=== PATIENT | female | born 1960 | race African-American/Black ===

== ENCOUNTER 2017-06-12 02:08 | Observation (INO) | payer OTHER ==
[~2017-06-12] VITALS: Ht 175.3 cm; Wt 105.0 kg
[2017-06-12] VITALS (13 sets, daily range): BP systolic 131–156; BP diastolic 62–96; PULSE 56–107; RESP 16–20; TEMP 97.8–99; O2SAT 94–99
[~2017-06-12 02:08] MED LIST: ASPI81TA82 PO; ENAL10TA7 PO; LANTUS2P SC; METF-324 PO
[2017-06-12] MEDS ORDERED: ASPI-516 CHEW (02:27)
[2017-06-12] MEDS ORDERED: ENAL20TA PO (02:27)
[2017-06-12] MEDS ORDERED: LANTUS2P SQ (02:27)
[2017-06-12] MEDS ORDERED: NOVONP2 SQ (02:27)
[2017-06-12] MEDS ORDERED: METF-382 PO (02:27)
--- NOTE | 2017-06-12 02:31 | PD ---
HPI Chief Complaint: Respiratory Symptoms Time Seen by Provider: 02:10 Travel History International Travel<30 days: No Contact w/Intl Traveler<30days: No Traveled to known affect area: No History of Present Illness HPI This is a 57-year-old female with history of asthma, "poorly controlled diabetes ," hypertension, who presents for evaluation of wheezing. For the past few days she has had wheezing and a slight nonproductive cough. Symptoms are worsened night. She is not currently prescribed anything for asthma because it has not been an issue for the past several years. She denies fevers, chills, chest brain, leg swelling, abdominal pain, nausea or vomiting. No sick contacts. She has no other complaints at this time. PFSH Past Medical History Asthma: Yes Cancer: No Cardiovascular Problems: No Diabetes: Yes (TYPE 2) Patient Takes Glucophage: Yes Endocrine: No Genitourinary: No Hepatitis: No Hiatal Hernia: No Immune Disorder: No Musculoskeletal: Yes (CARPAL TUNNEL) Neurologic: Yes (ARMS & LEG NEUROPATHY) Psychiatric: No Reproductive: No Respiratory: No Thyroid Disease: No ?: Not Past Surgical History AICD: No Joint Replacement: No Pacemaker: No Thoracic Surgery: Yes (LEFT BREAST BIOPSY) Other Surgery: Yes (CARPAL TUNNEL) Social History Alcohol Use: No Tobacco Use: No Substance Use: No Allergies-Medications (Allergen,Severity, Reaction): Coded Allergies: rosiglitazone (Unverified Allergy, Severe, SHAKITTY, 02/10/17) Reported Meds & Prescriptions Reported Meds & Active Scripts Active Reported Enalapril (Enalapril Maleate) 20 Mg Tab 20 Mg PO DAILY Novolin N Inj (Insulin Human NPH) 1,000 Unit/10 Ml Vial 10 Units SQ TID Lantus Inj (Insulin Glargine) 1,000 Unit/10 Ml Vial 80 Units SQ HS Metformin ER (Metformin HCl) 1,000 Mg John 1,000 Mg PO BID With evening meal Aspirin 81 Mg Chew 81 Mg CHEW DAILY Review of Systems Except as stated in HPI: all other systems reviewed are Neg Physical Exam Narrative GENERAL: Well developed well-nourished female in no acute distress SKIN: Warm and dry. HEAD: Atraumatic. Normocephalic. EYES: Pupils equal and round. No scleral icterus. No injection or drainage. ENT: No nasal bleeding or discharge. Mucous membranes pink and moist. NECK: Trachea midline. No JVD. CARDIOVASCULAR: Regular rate and rhythm. No murmur appreciated. RESPIRATORY: No accessory muscle use. There is wheezing bilaterally, prolonged expiratory phase as well as coarse breath sounds. GASTROINTESTINAL: Abdomen soft, non-tender, nondistended. Hepatic and splenic margins not palpable. MUSCULOSKELETAL: No obvious deformities. No clubbing. No cyanosis. There is trace tibial edema bilaterally. There is an Garo bandage in the left lower leg. NEUROLOGICAL: Awake and alert. No obvious cranial nerve deficits. Motor grossly within normal limits. Normal speech. PSYCHIATRIC: Appropriate mood and affect; insight and judgment normal. Data Data Last Documented VS Vital Signs Date Time Temp Pulse Resp B/P (MAP) Pulse Ox O2 Delivery O2 Flow Rate FiO2 06/12/17 02:41 98 21 06/12/17 02:19 56 20 143/87 (105) Room Air 06/12/17 02:09 99.0 Orders Orders Blood Glucose (06/12/17 02:29) Albuterol-Ipratropium Neb (Duoneb Neb) (06/12/17 02:30) Chest, Single Ap (06/12/17 ) Prednisone (Deltasone) (06/12/17 02:45) Complete Blood Count With Diff (06/12/17 03:10) Basic Metabolic Panel (Bmp) (06/12/17 03:10) B-Type Natriuretic Peptide (06/12/17 03:10) Magnesium (Mg) (06/12/17 03:10) Electrocardiogram (06/12/17 03:10) Furosemide Inj (Lasix Inj) (06/12/17 05:00) Creatine Kinase (Cpk) (06/12/17 03:20) Troponin I (06/12/17 03:20) Nitroglycerin 2% Oint (Nitroglycerin 2% (06/12/17 05:30) Admit Order (Ed Use Only) (06/12/17 05:26) Labs Laboratory Tests Test 06/12/17 03:20 White Blood Count 7.3 TH/MM3 Red Blood Count 4.55 MIL/MM3 Hemoglobin 12.4 GM/DL Hematocrit 38.5 % Mean Corpuscular Volume 84.8 FL Mean Corpuscular Hemoglobin 27.3 PG Mean Corpuscular Hemoglobin Concent 32.2 % Red Cell Distribution Width 16.8 % Platelet Count 182 TH/MM3 Mean Platelet Volume 10.8 FL Neutrophils (%) (Auto) 59.5 % Lymphocytes (%) (Auto) 26.5 % Monocytes (%) (Auto) 8.1 % Eosinophils (%) (Auto) 2.9 % Basophils (%) (Auto) 3.0 % Neutrophils # (Auto) 4.3 TH/MM3 Lymphocytes # (Auto) 1.9 TH/MM3 Monocytes # (Auto) 0.6 TH/MM3 Eosinophils # (Auto) 0.2 TH/MM3 Basophils # (Auto) 0.2 TH/MM3 CBC Comment DIFF FINAL Differential Comment Blood Urea Nitrogen 10 MG/DL Creatinine 0.98 MG/DL Random Glucose 188 MG/DL Calcium Level 8.8 MG/DL Magnesium Level 1.9 MG/DL Sodium Level 141 MEQ/L Potassium Level 3.8 MEQ/L Chloride Level 107 MEQ/L Carbon Dioxide Level 27.2 MEQ/L Anion Gap 7 MEQ/L Estimat Glomerular Filtration Rate 71 ML/MIN B-Type Natriuretic Peptide 240 PG/ML MDM Medical Decision Making Medical Screen Exam Complete: Yes Emergency Medical Condition: Yes Medical Record Reviewed: Yes Interpretation(s) EKG sinus tachycardia, rate 103, PVCs Differential Diagnosis Asthma exacerbation, reactive airway disease, bronchiolitis, bronchiectasis, pneumonia, spontaneous pneumothorax Narrative Course 57-year-old female presents with wheezing for the past several days with associated dry cough. On examination she has wheezing and coarse breath sounds bilaterally. She reports that typically she has minimal asthma symptoms and is not prescribed any medications for asthma control. Therefore chest x-ray has been ordered. The chest x-ray reveals pulmonary vascular congestion/mild pulmonary edema. The patient has no past medical history of congestive heart failure. Upon further discussion it appears that the patient has been experiencing orthopnea and dyspnea on exertion gradually over the past few weeks. Therefore lab work and EKG have been ordered. The patient was given IV Lasix and Nitropaste. She will be admitted. Discussed with my attending agrees with plan of care. Diagnosis Primary Impression: Pulmonary edema Additional Impression: Dyspnea Admitting Information Admitting Physician Requests: Rasheed Menendez Jun 12, 2017 02:31
[2017-06-12] MEDS: RESP: ALBUTEROL 2.5 MG/IPRATROPIUM 0.5 MG NEB (SCH) INH (02:38)
[2017-06-12] MEDS ORDERED: predniSONE 20 MG TAB PO ONE (02:45)
--- NOTE | 2017-06-12 02:58 | RADRPT ---
EXAM DATE/TIME: 06/12/2017 02:42 [facility] COMPARISON: No previous studies available for comparison. INDICATIONS : Shortness of breath and cough. MEDICAL HISTORY : None. SURGICAL HISTORY : None. ENCOUNTER: Initial ACUITY: 2 days PAIN SCORE: 0/10 LOCATION: chest FINDINGS: Single AP view of the chest. Diffuse pulmonary vasculature indistinctness and mild hazy opacity in th e lungs bilaterally suggesting pulmonary vascular congestion/mild pulmonary edema. Cardiomediastinal silhouette within normal limits. No evidence of pleural effusion or pneumothorax. No confluent pulmon raisa consolidation. CONCLUSION: Pulmonary vascular congestion/mild pulmonary edema. Maxwell Glez MD on June 12, 2017 at 2:54 Board Certified Radiologist. This report was verified electronically.
[2017-06-12 03:30] LABS: AUTOMATED NEUTROPHIL # 4.3 TH/MM3 (1.8-7.7); BASOPHIL # 0.2 TH/MM3 (0-0.2); EOSINOPHIL # 0.2 TH/MM3 (0-0.4); EOSINOPHIL % 2.9 % (0.0-4.0); HEMATOCRIT 38.5 % (35.0-46.0); HEMO FLAGS DIFF FINAL; LYMPH % 26.5 % (9.0-44.0); LYMPHOCYTE # 1.9 TH/MM3 (1.0-4.8); MEAN CELL VOLUME 84.8 FL (80.0-100.0); MEAN CORPUSCULAR HEMOGLOBIN 27.3 PG (27.0-34.0); MEAN CORPUSCULAR HGB CONC 32.2 % (32.0-36.0); MONO % 8.1 % (0.0-8.0); NEUT % 59.5 % (16.0-70.0); PLATELET COUNT 182 TH/MM3 (150-450); RED BLOOD COUNT 4.55 MIL/MM3 (4.00-5.30); RED CELL DISTRIBUTION WIDTH 16.8 % (11.6-17.2); WHITE BLOOD COUNT 7.3 TH/MM3 (4.0-11.0)
[2017-06-12 04:51] LABS: BICARBONATE 27.2 MEQ/L (21.0-32.0); MAGNESIUM 1.9 MG/DL (1.5-2.5); POTASSIUM 3.8 MEQ/L (3.5-5.1)
[2017-06-12] MEDS ORDERED: FUROSEMIDE 20 MG/2 ML VIAL IV PUSH ONE (05:00)
[2017-06-12] MEDS ORDERED: NITROGLYCERIN 2% OINT 1 GM PACKET TOP ONE (05:30)
[2017-06-12 05:50] LABS: CKMB 1.7 NG/ML (0.5-3.6)
[2017-06-12] MEDS ORDERED: RESP: ALBUTEROL 2.5 MG/IPRATROPIUM 0.5 MG NEB (PRN) NEB (08:30)
[2017-06-12] MEDS ORDERED: ACETAMINOPHEN 325 MG TAB PO PRN (08:30)
[2017-06-12] MEDS ORDERED: ONDANSETRON HCL 4 MG/2 ML VIAL IV PRN (08:30)
[2017-06-12] MEDS ORDERED: GLUCAGON 1 MG/ML VIAL OTHER PRN (08:45)
[2017-06-12] MEDS ORDERED: DEXTROSE 50% IN WATER 50 ML VIAL(D50) IV PUSH PRN (08:45)
[2017-06-12] MEDS ORDERED: ENALAPRIL MALEATE 10 MG TAB PO SCH ×2 (09:00→21:00)
[2017-06-12] MEDS ORDERED: ASPIRIN 81 MG CHEW TAB CHEW SCH ×2 (09:00→21:00)
--- NOTE | 2017-06-12 10:04 | HHI.HP ---
HPI Service [facility] Primary Care Physician Marcus Sepulveda M.D. Admission Diagnosis dyspnea, pulmonary edema Chief Complaint: SOB, wheezing Travel History International Travel<30 Days: No Contact w/Intl Traveler <30 Da: No Traveled to Known Affected Are: No History of Present Illness Mrs. Mahajan is a pleasant 57 y/o AAF with poorly controlled diabetes, chronic nonhealing wound on the LLE, hx of asthma, and HTN. She presented to the ED at [facility] on 06/12/17 with complaints of wheezing and SOB that had been going on for 2 days and progressively worsened last night. She has hx of asthma but states that since she moved to [place] 10 years ago from [place] that she has not had any issues with her asthma flaring up. She thinks that with the weather changing this caused her to start having issues with the wheezing two days ago. She states that the wheezing and SOB has been worse at night. Last night she was unable to catch her breath and felt like she had tightness in her chest and this prompted her evaluation in the ED. She denies any recent illnesses, cough, congestion, sore throat, or rhinorrhea. Denies any fevers or chills. CXR in the ED noted pulmonary vascular congestion/mild pulmonary edema. Pt was given a Duoneb treatment, Prednisone 20mg x one dose and Lasix 20mg IV x one dose. She was admitted for observation and further evaluation. At the time of my evaluation her wheezing is much improved. She states that she had a significant amount of urine output after the Lasix dose. Overall she is feeling better. Pt denies any hx of CHF or cardiac issues. She felt that overall her breathing was most improved by the Duoneb treatment. Review of Systems Constitutional: DENIES: Fever, Chills Eyes: DENIES: Vision loss Ears, nose, mouth, throat: DENIES: Hearing loss, Nasal discharge, Throat pain, Hoarseness, Running Nose, Epistaxis Respiratory: COMPLAINS OF: Wheezing, Shortness of breath, DENIES: Cough, Sputum production Cardiovascular: COMPLAINS OF: Lower Extremity Edema (chronic), DENIES: Chest pain, Palpitations, Dyspnea on Exertion Gastrointestinal: DENIES: Abdominal pain, Constipation, Diarrhea, Nausea, Vomiting Genitourinary: DENIES: Hematuria, Dysuria Musculoskeletal: DENIES: Back pain, Neck pain Integumentary: DENIES: Rash Neurologic: DENIES: Headache Psychiatric: DENIES: Confusion Past Family Social History Past Medical History Poorly controlled diabetes, Hgb A1C 11.7% in 12/2016 Chronic LLE wound Peripheral neuropathy Hx of asthma Past Surgical History Left wrist carpal tunnel release Bunionectomy Reported Medications Enalapril (Enalapril Maleate) 20 Mg Tab 20 Mg PO DAILY Novolin N Inj (Insulin Human NPH) 1,000 Unit/10 Ml Vial 10 Units SQ TID Lantus Inj (Insulin Glargine) 1,000 Unit/10 Ml Vial 80 Units SQ HS Metformin ER (Metformin HCl) 1,000 Mg John 1,000 Mg PO BID With evening meal Aspirin 81 Mg Chew 81 Mg CHEW DAILY Allergies: Coded Allergies: rosiglitazone (Unverified Allergy, Severe, SHAKES, 02/10/17) Family History Noncontributory Social History Denies any tobacco, alcohol, or illicit drug use Pt is a assistant infant teacher Moved to [place] from [place] around 10-12 years ago Physical Exam Vital Signs Vital Signs Date Time Temp Pulse Resp B/P (MAP) Pulse Ox O2 Delivery O2 Flow Rate FiO2 06/12/17 08:24 97.9 94 18 144/74 (97) 97 06/12/17 08:15 06/12/17 06:13 96 20 156/96 (116) 97 Room Air 06/12/17 02:41 98 21 06/12/17 02:19 56 20 143/87 (105) 97 Room Air 06/12/17 02:09 99.0 107 20 146/91 (109) 99 Physical Exam GENERAL: This is a well-nourished, well-developed patient, in no apparent distress. SKIN: Left lateral calf large wound, does not appear infected, good granulation tissue noted HEAD: Atraumatic. Normocephalic. No temporal or scalp tenderness. No scleral icterus. Airway patent. NECK: Trachea midline, supple, nontender. CARDIO: Regular. RESP: Breath sounds equal bilaterally. No wheezes, rales, or rhonchi. ABD: +BS, soft, non-tender, nondistended. No hepato-splenomegaly, or palpable masses. No guarding. EXT: LLE edema. NEURO: Awake and alert. Motor and sensory grossly within normal limits. Normal speech. Laboratory Laboratory Tests Test 06/12/17 03:20 White Blood Count 7.3 Red Blood Count 4.55 Hemoglobin 12.4 Hematocrit 38.5 Mean Corpuscular Volume 84.8 Mean Corpuscular Hemoglobin 27.3 Mean Corpuscular Hemoglobin Concent 32.2 Red Cell Distribution Width 16.8 Platelet Count 182 Mean Platelet Volume 10.8 Neutrophils (%) (Auto) 59.5 Lymphocytes (%) (Auto) 26.5 Monocytes (%) (Auto) 8.1 Eosinophils (%) (Auto) 2.9 Basophils (%) (Auto) 3.0 Neutrophils # (Auto) 4.3 Lymphocytes # (Auto) 1.9 Monocytes # (Auto) 0.6 Eosinophils # (Auto) 0.2 Basophils # (Auto) 0.2 CBC Comment DIFF FINAL Differential Comment Blood Urea Nitrogen 10 Creatinine 0.98 Random Glucose 188 Calcium Level 8.8 Magnesium Level 1.9 Sodium Level 141 Potassium Level 3.8 Chloride Level 107 Carbon Dioxide Level 27.2 Anion Gap 7 Estimat Glomerular Filtration Rate 71 Total Creatine Kinase 218 Creatine Kinase MB 1.7 Creatine Kinase MB % 0.8 Troponin I 0.02 B-Type Natriuretic Peptide 240 Result Diagram: 06/12/17 0320 06/12/17 0320 Imaging Last Impressions Chest X-Ray 06/12/17 0000 Signed Impressions: Service Date/Time: Monday, June 12, 2017 02:42 - CONCLUSION: Pulmonary vascular congestion/mild pulmonary edema. Maxwell Glez MD Caprini VTE Risk Assessment Caprini VTE Risk Assessment: No/Low Risk (score <= 1) Caprini Risk Assessment Model Point Value = 1 Point Value = 2 Point Value = 3 Point Value = 5 Age 41-60 Minor surgery BMI > 25 kg/m2 Swollen legs Varicose veins or History of unexplained or recurrent spontaneous Oral contraceptives or hormone replacement Sepsis (< 1 month) Serious lung disease, including pneumonia (< 1 month) Abnormal pulmonary function Acute myocardial infarction Congestive heart failure (< 1 month) History of inflammatory bowel disease Medical patient at bed rest Age 61-74 Arthroscopic surgery Major open surgery (> 45 min) Laparoscopic surgery (> 45 min) Malignancy Confined to bed (> 72 hours) Immobilizing plaster cast Central venous access Age >= 75 History of VTE Family history of VTE Factor V Leiden Prothrombin [id number] Lupus anticoagulant Anticardiolipin antibodies Elevated serum homocysteine Heparin-induced thrombocytopenia Other congenital or acquired thrombophilia Stroke (< 1 month) Elective arthroplasty Hip, pelvis, or leg fracture Acute spinal cord injury (< 1 month) Prophylaxis Regimen Total Risk Factor Score Risk Level Prophylaxis Regimen 0-1 Low Early ambulation 2 Moderate Order ONE of the following: *Sequential Compression Device (SCD) *Heparin 5000 units SQ BID 3-4 Higher Order ONE of the following medications: *Heparin 5000 units SQ TID *Enoxaparin/Lovenox 40 mg SQ daily (WT < 150 kg, CrCl > 30 mL/min) *Enoxaparin/Lovenox 30 mg SQ daily (WT < 150 kg, CrCl > 10-29 mL/min) *Enoxaparin/Lovenox 30 mg SQ BID (WT < 150 kg, CrCl > 30 mL/min) AND/OR *Sequential Compression Device (SCD) 5 or more Highest Order ONE of the following medications: *Heparin 5000 units SQ TID (Preferred with Epidurals) *Enoxaparin/Lovenox 40 mg SQ daily (WT < 150 kg, CrCl > 30 mL/min) *Enoxaparin/Lovenox 30 mg SQ daily (WT < 150 kg, CrCl > 10-29 mL/min) *Enoxaparin/Lovenox 30 mg SQ BID (WT < 150 kg, CrCl > 30 mL/min) AND *Sequential Compression Device (SCD) Assessment and Plan Problem List: (1) Dyspnea ICD Codes: R06.00 - Dyspnea, unspecified Status: Acute Plan: Pt is a 57 y/o AAF with poorly controlled diabetes, chronic nonhealing wound on the LLE, hx of asthma, and HTN. She presented to the ED at [facility] on 06/12 with complaints of wheezing and SOB that had been going on for 2 days and progressively worsened last night. She has hx of asthma but states that since she moved to [place] 10 years ago from [place] that she has not had any issues with her asthma flaring up. She thinks that with the weather changing this caused her to start having issues with the wheezing two days ago. Dyspnea/Wheezing Asthma Pulmonary edema - She states that the wheezing and SOB has been worse at night. Last night she was unable to catch her breath and felt like she had tightness in her chest and this prompted her evaluation in the ED. No reported recent illnesses, cough, congestion, sore throat, or rhinorrhea. Denies any fevers or chills. - CXR in the ED noted pulmonary vascular congestion/mild pulmonary edema. - Pt was given a Duoneb treatment, Prednisone 20mg x one dose and Lasix 20mg IV x one dose. - She states that she had a significant amount of urine output after the Lasix dose. - Overall she is feeling better. Pt denies any hx of CHF or cardiac issues but we don't have a good explanation for the pulmonary edema - Cont. Duonebs Q4H - Obtain 2D echo - Albuterol Inhaler upon discharge - Telemetry - CXR in AM Diabetes Mellitus, poorly controlled Nonhealing LLE wound - Hgb A1C 11.7% in 12/2016 - Pt admits to not following a diabetic diet - NovoLog SSI - Levemir 20 units at night - Cont. Enalapril and ASA - She would benefit from outpt diabetic education for dietary management - She follows outpt with Dr. Cuenca for wound care, Dr. Fuentes for LE vascular monitoring, and Dr. Galarza for plastics regarding her LLE wound. Continue with current wound care regiment. The wound does not appear infected. (2) Asthma ICD Codes: J45.909 - Unspecified asthma, uncomplicated (3) Pulmonary edema ICD Codes: J81.1 - Chronic pulmonary edema Status: Acute (4) Diabetes mellitus type 2, insulin dependent ICD Codes: E11.9 - Type 2 diabetes mellitus without complications; Z79.4 - termite exterminator (current) use of insulin Ginger Steiner Jun 12, 2017 10:04
[2017-06-12] MEDS: metFORMIN HCL 500 MG TAB PO SCH ×2 (11:22→18:38)
[2017-06-12] MEDS: RESP: ALBUTEROL 2.5 MG/IPRATROPIUM 0.5 MG NEB (SCH) NEB ×4 (11:25→23:40)
[2017-06-12] MEDS: INSULIN ASPART SUPPLEMENTAL SCALE SQ SCH ×3 (12:00→21:35)
[2017-06-12] MEDS ORDERED: PILL SPLITTER OTHER PRN (13:45)
[2017-06-12] MEDS ORDERED: FLUCONAZOLE 100 MG TAB PO ONE (13:45)
[2017-06-12] MEDS ORDERED: IBUPROFEN 400 MG TAB PO PRN (16:30)
[2017-06-12] MEDS ORDERED: INSULIN DETEMIR 100 UNITS/ML VIAL SQ SCH (21:00)
[2017-06-13] VITALS (7 sets, daily range): BP systolic 106–141; BP diastolic 55–83; PULSE 53–118; RESP 18–20; TEMP 98–98.2; O2SAT 94–96
[2017-06-13] MEDS: RESP: ALBUTEROL 2.5 MG/IPRATROPIUM 0.5 MG NEB (SCH) NEB ×2 (03:59→07:10)
--- NOTE | 2017-06-13 06:57 | RADRPT ---
EXAM DATE/TIME: 06/13/2017 06:48 [facility] COMPARISON: CHEST SINGLE AP, June 12, 2017, 2:42. INDICATIONS : Cough and congestion MEDICAL HISTORY : Asthma SURGICAL HISTORY : None. ENCOUNTER: Subsequent ACUITY: 3 days PAIN SCORE: 6/10 LOCATION: Bilateral chest FINDINGS: Single AP view of the chest. Lung volumes are low. The lungs are clear. Cardiomediastinal silhouette within normal limits. No evidence of pleural effusion or pneumothorax. CONCLUSION: No acute cardiopulmonary disease identified. Maxwell Glez MD on June 13, 2017 at 6:54 Board Certified Radiologist. This report was verified electronically.
[2017-06-13 07:17] LABS: AUTOMATED NEUTROPHIL # 3.3 TH/MM3 (1.8-7.7); BASOPHIL # 0.1 TH/MM3 (0-0.2); BASOPHIL % 0.8 % (0.0-2.0); EOSINOPHIL # 0.2 TH/MM3 (0-0.4); EOSINOPHIL % 2.6 % (0.0-4.0); HEMATOCRIT 33.5 % (35.0-46.0); HEMO FLAGS DIFF FINAL; LYMPH % 34.2 % (9.0-44.0); LYMPHOCYTE # 2.1 TH/MM3 (1.0-4.8); MEAN CELL VOLUME 83.5 FL (80.0-100.0); MEAN CORPUSCULAR HEMOGLOBIN 27.4 PG (27.0-34.0); MEAN CORPUSCULAR HGB CONC 32.8 % (32.0-36.0); MONO % 9.6 % (0.0-8.0); NEUT % 52.8 % (16.0-70.0); PLATELET COUNT 152 TH/MM3 (150-450); RED BLOOD COUNT 4.02 MIL/MM3 (4.00-5.30); RED CELL DISTRIBUTION WIDTH 17.1 % (11.6-17.2); WHITE BLOOD COUNT 6.2 TH/MM3 (4.0-11.0)
--- NOTE | 2017-06-13 07:43 | HHI.PR ---
Subjective Remarks No issues overnight. No further wheezing or SOB Pt wants to to stop the duoneb treatments because it makes her shaky 2D echo has not been performed yet Objective Vitals Vital Signs Date Time Temp Pulse Resp B/P (MAP) Pulse Ox O2 Delivery O2 Flow Rate FiO2 06/13/17 04:00 96 06/13/17 03:50 98.1 82 18 141/83 (102) 96 06/13/17 00:00 98 06/12/17 23:40 98.4 62 17 132/62 (85) 95 06/12/17 20:00 96 06/12/17 19:07 97 21 06/12/17 18:43 98.6 89 18 144/80 (101) 94 06/12/17 16:04 100 06/12/17 15:56 98 06/12/17 12:31 97.8 75 16 131/72 (91) 96 06/12/17 12:04 99 06/12/17 08:24 97.9 94 18 144/74 (97) 97 06/12/17 08:15 Result Diagram: 06/13/17 0605 06/12/17 0320 Other Results Laboratory Tests Test 06/12/17 03:20 06/13/17 06:05 White Blood Count 7.3 TH/MM3 6.2 TH/MM3 Red Blood Count 4.55 MIL/MM3 4.02 MIL/MM3 Hemoglobin 12.4 GM/DL 11.0 GM/DL Hematocrit 38.5 % 33.5 % Mean Corpuscular Volume 84.8 FL 83.5 FL Mean Corpuscular Hemoglobin 27.3 PG 27.4 PG Mean Corpuscular Hemoglobin Concent 32.2 % 32.8 % Red Cell Distribution Width 16.8 % 17.1 % Platelet Count 182 TH/MM3 152 TH/MM3 Mean Platelet Volume 10.8 FL 10.3 FL Neutrophils (%) (Auto) 59.5 % 52.8 % Lymphocytes (%) (Auto) 26.5 % 34.2 % Monocytes (%) (Auto) 8.1 % 9.6 % Eosinophils (%) (Auto) 2.9 % 2.6 % Basophils (%) (Auto) 3.0 % 0.8 % Neutrophils # (Auto) 4.3 TH/MM3 3.3 TH/MM3 Lymphocytes # (Auto) 1.9 TH/MM3 2.1 TH/MM3 Monocytes # (Auto) 0.6 TH/MM3 0.6 TH/MM3 Eosinophils # (Auto) 0.2 TH/MM3 0.2 TH/MM3 Basophils # (Auto) 0.2 TH/MM3 0.1 TH/MM3 CBC Comment DIFF FINAL DIFF FINAL Differential Comment Blood Urea Nitrogen 10 MG/DL Creatinine 0.98 MG/DL Random Glucose 188 MG/DL Calcium Level 8.8 MG/DL Magnesium Level 1.9 MG/DL Sodium Level 141 MEQ/L Potassium Level 3.8 MEQ/L Chloride Level 107 MEQ/L Carbon Dioxide Level 27.2 MEQ/L Anion Gap 7 MEQ/L Estimat Glomerular Filtration Rate 71 ML/MIN Total Creatine Kinase 218 U/L Creatine Kinase MB 1.7 NG/ML Creatine Kinase MB % 0.8 % Troponin I 0.02 NG/ML B-Type Natriuretic Peptide 240 PG/ML Imaging Last Impressions Chest X-Ray 06/13/17 0600 Signed Impressions: Service Date/Time: Tuesday, June 13, 2017 06:48 - CONCLUSION: No acute cardiopulmonary disease identified. Maxwell Glez MD Last Impressions Chest X-Ray 06/12/17 0000 Signed Impressions: Service Date/Time: Monday, June 12, 2017 02:42 - CONCLUSION: Pulmonary vascular congestion/mild pulmonary edema. Maxwell Glez MD Objective Remarks General: NAD, AAox3 Chest: CTA Cardiac: Regular Abd: +BS, soft ND/NT Ext: No edema, wound on LLE bandages are c/d/i A/P Problem List: (1) Dyspnea ICD Codes: R06.00 - Dyspnea, unspecified Status: Acute Plan: Pt is a 57 y/o AAF with poorly controlled diabetes, chronic nonhealing wound on the LLE, hx of asthma, and HTN. She presented to the ED at [facility] [place] on 06/12 with complaints of wheezing and SOB that had been going on for 2 days and progressively worsened last night. She has hx of asthma but states that since she moved to [place] 10 years ago from [place] that she has not had any issues with her asthma flaring up. She thinks that with the weather changing this caused her to start having issues with the wheezing two days ago. Dyspnea/Wheezing Asthma Pulmonary edema - She states that the wheezing and SOB has been worse at night. Last night she was unable to catch her breath and felt like she had tightness in her chest and this prompted her evaluation in the ED. No reported recent illnesses, cough, congestion, sore throat, or rhinorrhea. Denies any fevers or chills. - CXR in the ED noted pulmonary vascular congestion/mild pulmonary edema. - Pt was given a Duoneb treatment, Prednisone 20mg x one dose and Lasix 20mg IV x one dose. - She states that she had a significant amount of urine output after the Lasix dose. - Overall she is feeling better. Pt denies any hx of CHF or cardiac issues but we don't have a good explanation for the pulmonary edema - CXR (06/13) --> No acute cardiopulmonary disease identified. - Obtain 2D echo today - Albuterol Inhaler PRN, pt wants Duonebs stopped - Telemetry with occasional PVCs, tachy after breathing treatments - Await 2D echo results - Anticipate discharge to home later today Diabetes Mellitus, poorly controlled Nonhealing LLE wound - Hgb A1C 11.7% in 12/2016 - Pt admits to not following a diabetic diet - NovoLog SSI - Levemir 20 units at night - Cont. Enalapril and ASA - She would benefit from outpt diabetic education for dietary management - She follows outpt with Dr. Cuenca for wound care, Dr. Fuentes for LE vascular monitoring, and Dr. Galarza for plastics regarding her LLE wound. Continue with current wound care regiment. The wound does not appear infected. ADDENDUM: - Pts 2D echo results were reviewed with her: - Estimated EF 50-55% - Grade 2 diastolic dysfunction - [id number] mitral valve regurgitation - Trace tricuspid valve regurgitation - Estimated PA pressure 50.4mmHg - Discussed with the pt that its unclear if her symptoms were related to just asthma exacerbation vs. pulmonary edema secondary to diastolic dysfunction vs. combination of the two vs. other. - Pt has been ambulating without difficulty - She does not want to continue the duonebs at home but requests an albuterol inhaler which was prescribed - She may at some point need diuretic therapy added to her medication regimen should she had further issues with pulmonary edema - Pt is to followup with her PCP, Dr. Marcus Sepulveda, in 1 week. - Pt would benefit from diabetic education as an outpt. She needs better control of her diabetes and she states that she plans to modify her diet. - She again denied any symptoms of chest pain before or during admission and she has not had any further wheezing or SOB since being in the ED and felt that her symptoms completely resolved. - Discussed with the pt that should she develop any SOB, chest discomfort, palpitations, dizziness, weakness, or dyspnea on exertion that she is to inform her PCP and/or report back to the ED for further evaluation. - Should her symptoms return I have a low threshold for pursuing a stress test in the setting of her poorly controlled diabetes she is at risk for CAD and this was discussed with the pt and she expressed understanding. (2) Asthma ICD Codes: J45.909 - Unspecified asthma, uncomplicated (3) Pulmonary edema ICD Codes: J81.1 - Chronic pulmonary edema Status: Acute (4) Diabetes mellitus type 2, insulin dependent ICD Codes: E11.9 - Type 2 diabetes mellitus without complications; Z79.4 - extermination inspector (current) use of insulin Problem Qualifiers (1) Asthma: Qualified Codes: J45.909 - Unspecified asthma, uncomplicated (2) Pulmonary edema: Qualified Codes: J81.0 - Acute pulmonary edema Ginger Steiner Jun 13, 2017 07:43
[2017-06-13] MEDS ORDERED: ALBUTEROL SULFATE 90 MCG/ACT HFA 8 GM INHALER INH PRN (07:45)
[2017-06-13 07:49] LABS: BICARBONATE 24.6 MEQ/L (21.0-32.0); MAGNESIUM 1.8 MG/DL (1.5-2.5); POTASSIUM 3.4 MEQ/L (3.5-5.1)
[2017-06-13] MEDS: INSULIN ASPART SUPPLEMENTAL SCALE SQ SCH ×2 (08:00→12:00)
[2017-06-13] MEDS ORDERED: predniSONE 20 MG TAB PO SCH (09:00)
[2017-06-13] MEDS: metFORMIN HCL 500 MG TAB PO SCH (09:33)
[2017-06-13] MEDS ORDERED: POTASSIUM CHLORIDE 20 MEQ CONTROLLED RELEASE TAB PO ONE (10:00)
--- NOTE | 2017-06-13 10:06 | EKG ---
Date Performed: 06/12/2017 Time Performed: 03:26:22 PTAGE: 57 years EKG: SINUS TACHYCARDIA WITH FREQUENT VENTRICULAR PREMATURE COMPLEXES POSSIBLE LEFT ATRIAL ENLARG EMENT NONSPECIFIC T-WAVE ABNORMALITY ABNORMAL RHYTHM ECG PREVIOUS TRACING : 01/09/2016 07.30 DOCTOR: Jonathan Downing Interpretating Date/Time 06/13/2017 10:04:56
--- NOTE | 2017-06-13 13:37 | ECHRPT ---
Indication: heart failure CONCLUSIONS Normal left ventricular size. The left ventricular systolic function is low normal with an estimated ejection fraction in the rang e of 50- 55%. Doppler parameters are consistent with a pseudonormal left ventricular filling pattern with concomin ant abnormal relaxation and increased filling pressure (grade 2 diastolic dysfunction). [id number] mitral valve regurgitation. The aortic valve is not well visualized. No aortic valve regurgitation. No aortic valve stenosis. There is trace tricuspid valve regurgitation. The estimated pulmonary arterial pressure is 50.4 mmHg. BP: / HR: Rhythm: MEASUREMENTS (Male / Female) Normal Values Technical Quality:Fair 2D ECHO LV Diastolic Diameter PLAX 5.1 cm 4.2 - 5.9 / 3.9 - 5.3 cm LV Systolic Diameter PLAX 3.9 cm IVS Diastolic Thickness 1.3 cm 0.6 - 1.0 / 0.6 - 0.9 cm LVPW Diastolic Thickness 0.9 cm 0.6 - 1.0 / 0.6 - 0.9 cm LV Relative Wall Thickness 0.4 RV Internal Dim ED PLAX 2.5 cm M-MODE Aortic Root Diameter MM 3.2 cm LA Systolic Diameter MM 3.4 cm LA Ao Ratio MM 1.1 AV Cusp Separation MM 2.5 cm DOPPLER LV E' Lateral Velocity 5.9 cm/s LV E' Septal Velocity 6.3 cm/s TR Peak Velocity 318.0 cm/s TR Peak Gradient 40.4 mmHg Right Atrial Pressure 10.0 mmHg Pulmonary Artery Systolic Pressu 50.4 mmHg Right Ventricular Systolic Press 50.4 mmHg FINDINGS LEFT VENTRICLE Normal left ventricular size. The left ventricular systolic function is low normal with an estimated ejection fraction in the rang e of 50- 55%. Doppler parameters are consistent with a pseudonormal left ventricular filling pattern with concomin ant abnormal relaxation and increased filling pressure (grade 2 diastolic dysfunction). RIGHT VENTRICLE Normal right ventricular size and systolic function. LEFT ATRIUM The left atrial size is normal. RIGHT ATRIUM The right atrial size is normal. ATRIAL SEPTUM Normal atrial septal thickness without atrial level shunting by limited color doppler interrogation. AORTA The aortic root and proximal ascending aorta are normal in size on limited imaging. MITRAL VALVE Structurally normal mitral valve. [id number] mitral valve regurgitation. AORTIC VALVE The aortic valve is not well visualized. No aortic valve regurgitation. No aortic valve stenosis. TRICUSPID VALVE Structurally normal tricuspid valve. There is trace tricuspid valve regurgitation. The estimated pulmonary arterial pressure is 50.4 mmHg. PULMONARY VALVE No pulmonary valve regurgitation or stenosis. VESSELS The inferior vena cava is normal in size. PERICARDIUM No pericardial effusion. Rodrigo Nunes MD, FACC (Electronically Signed) Final Date:13 June 2017 13:36
[2017-06-13] MEDS ORDERED: Albuterol Hfa Inh INH (13:47)
--- NOTE | 2017-06-13 13:48 | HHI.DCPOC ---
Discharge Care Plan Diagnosis: (1) Dyspnea (2) Asthma (3) Pulmonary edema (4) Diabetes mellitus type 2, insulin dependent Goals to Promote Your Health * To prevent worsening of your condition and complications * To maintain your health at the optimal level Directions to Meet Your Goals Take your medications as prescribed Follow your dietary instruction Follow activity as directed Keep your appointments as scheduled Take your immunizations and boosters as scheduled If your symptoms worsen call your PCP, if no PCP go to Urgent Care Center or Emergency Room Smoking is Dangerous to Your Health. Avoid second hand smoke Call the 24-hour hour crisis hotline for domestic abuse at Ginger Steiner Jun 13, 2017 13:48
== END 2017-06-13 15:26 | disposition home or self-care (01) ==
LOC: NEPD 02:08 → NEDA 05:27 → NEPGCP 08:29
PROVIDERS: ADMIT Hospitalist; ATTEND Hospitalist
DX: R06.00 Dyspnea, unspecified (principal); R05 Cough; R06.01 Orthopnea; R00.0 Tachycardia, unspecified; I49.3 Ventricular premature depolarization; I10 Essential (primary) hypertension; E11.65 Type 2 diabetes mellitus with hyperglycemia; E11.42 Type 2 diabetes mellitus with diabetic polyneuropathy; S81.802A Unspecified open wound, left lower leg, initial encounter; J45.909 Unspecified asthma, uncomplicated; J81.1 Chronic pulmonary edema; Z79.899 Other long term (current) drug therapy; Z79.82 Long term (current) use of aspirin; Z79.4 Long term (current) use of insulin; X58.XXXA Exposure to other specified factors, initial encounter
CPT/HCPCS: 71010; 80048; 82550; 82552; 82948; 83735; 83880; 84484; 85025; 93005; 93306; 94640; 94664; 96372; 96374; 99285; G0378; J1815; J1940; J7512

== ENCOUNTER 2017-08-19 06:44 | Emergency (ER) | payer OTHER ==
[~2017-08-19] VITALS: Ht 175.3 cm; Wt 115.0 kg
[~2017-08-19 06:44] MED LIST changes: +ASPI-516 CHEW; -ASPI81TA82 PO; +Albuterol Hfa Inh INH; -ENAL10TA7 PO; +ENAL20TA PO; -LANTUS2P SC; +LANTUS2P SQ; -METF-324 PO; +METF-382 PO; +NOVONP2 SQ
[2017-08-19 06:55] VITALS: BP 168/116; PULSE 110; RESP 16; TEMP 98.9; O2SAT 99
[2017-08-19] MEDS ORDERED: FURO1TAB60 PO (07:15)
[2017-08-19] MEDS ORDERED: POTA-163 PO (07:15)
--- NOTE | 2017-08-19 07:25 | PD ---
HPI Chief Complaint: GI Complaint Time Seen by Provider: 07:08 Travel History International Travel<30 days: No Contact w/Intl Traveler<30days: No Traveled to known affect area: No History of Present Illness HPI The patient was seen and examined in the presence of the nurse. This patient complains of generalized weakness. Duration 2 days. Severity is moderate. She said nausea and intermittent epigastric discomfort. Not having any chest pain. She has poorly controlled diabetes and hypertension. She has a chronic ulcerative wound on the left lower leg that is improved for her report. She denies fever. She had one episode of diarrhea today and one yesterday. No alleviating factors no syncope. She did have lightheadedness. Denies headache or head injury. No exacerbating factors. PFSH Past Medical History Asthma: Yes Blood Disorders: No Heart Rhythm Problems: No Cancer: No Cardiovascular Problems: Yes High Cholesterol: No Chest Pain: No Congestive Heart Failure: No COPD: No Diabetes: Yes (TYPE 2 DIABETES) Patient Takes Glucophage: Yes Endocrine: Yes Genitourinary: No Hepatitis: No Hiatal Hernia: No Hypertension: Yes Immune Disorder: No Musculoskeletal: No Neurologic: Yes (NEUROPATHY IN BILATERAL LEGS) Psychiatric: No Reproductive: Yes (CHRONIC YEAST INFECTIONS) Respiratory: Yes Sleep Apnea: No Thyroid Disease: No ?: Not Past Surgical History AICD: No Joint Replacement: No Pacemaker: No Thoracic Surgery: Yes (LEFT BREAST BIOPSY) Other Surgery: Yes (CARPAL TUNNEL) Social History Alcohol Use: No Tobacco Use: No Substance Use: No Allergies-Medications (Allergen,Severity, Reaction): Coded Allergies: rosiglitazone (Unverified Allergy, Severe, SHAKES, 02/10/17) Reported Meds & Prescriptions Reported Meds & Active Scripts Active [Albuterol Hfa Inh] 60 PUFF/8 GM Aero 2 Puff INH Q4H PRN Reported Potassium Chloride ER (Potassium Chloride) 20 Meq Tab 20 Meq PO DAILY Lasix (Furosemide) 40 Mg Tab 40 Mg PO DAILY Enalapril (Enalapril Maleate) 20 Mg Tab 20 Mg PO DAILY Novolin N Inj (Insulin Human NPH) 1,000 Unit/10 Ml Vial 10 Units SQ TID Lantus Inj (Insulin Glargine) 1,000 Unit/10 Ml Vial 80 Units SQ HS Metformin ER (Metformin HCl) 1,000 Mg John 1,000 Mg PO BID With evening meal Aspirin 81 Mg Chew 81 Mg CHEW DAILY Review of Systems General / Constitutional: No: Fever Eyes: No: Visual changes HENT: Positive: Lightheadedness, No: Headaches Cardiovascular: No: Chest Pain or Discomfort Respiratory: No: Shortness of Breath Gastrointestinal: Positive: Nausea, Diarrhea, Abdominal Pain Genitourinary: No: Dysuria Musculoskeletal: Positive: Weakness, No: Pain Skin: No Rash Neurologic: Positive: Weakness Psychiatric: No: Depression Endocrine: No: Polydipsia Hematologic/Lymphatic: No: Easy Bruising Physical Exam Narrative GENERAL: Obese well-developed patient in no apparent distress. SKIN: Focused skin assessment reveals no rash and nodules. Skin is Warm and dry. HEAD: Atraumatic. Normocephalic. EYES: Pupils equal and round. No scleral icterus. No injection or drainage. ENT: No nasal bleeding or discharge. Mucous membranes pink and moist. NECK: Trachea midline. No JVD. CARDIOVASCULAR: Regular rate and rhythm. No murmur appreciated. RESPIRATORY: No accessory muscle use. Clear to auscultation. Breath sounds equal bilaterally. GASTROINTESTINAL: Abdomen soft, non-tender, nondistended. Hepatic and splenic margins not palpable. MUSCULOSKELETAL: No obvious deformities. No clubbing. No cyanosis. No edema. Has a large ulcer on the lateral aspect of her left lower leg. There is no sign of infection here. NEUROLOGICAL: Awake and alert. No obvious cranial nerve deficits. Motor grossly within normal limits. Normal speech. PSYCHIATRIC: Appropriate mood and affect; insight and judgment normal. Data Data Last Documented VS Vital Signs Date Time Temp Pulse Resp B/P (MAP) Pulse Ox O2 Delivery O2 Flow Rate FiO2 08/19/17 07:50 98 18 113/62 (79) 95 Room Air 08/19/17 06:55 98.9 Orders Orders Ondansetron Inj (Zofran Inj) (08/19/17 07:30) Complete Blood Count With Diff (08/19/17 07:16) Comprehensive Metabolic Panel (08/19/17 07:16) Lipase (08/19/17 07:16) Urinalysis - C+S If Indicated (08/19/17 07:16) Iv Access Insert/Monitor (08/19/17 07:16) Ecg Monitoring (08/19/17 07:16) Oximetry (08/19/17 07:16) Sodium Chloride 0.9% Flush (Ns Flush) (08/19/17 07:30) Clonidine (Catapres) (08/19/17 07:30) Ckmb (Isoenzyme) Profile (08/19/17 07:25) Troponin I (08/19/17 07:25) CKMB (08/19/17 07:26) CKMB% (08/19/17 07:26) Electrocardiogram (08/19/17 06:54) Labs Laboratory Tests Test 08/19/17 07:26 08/19/17 07:42 White Blood Count 5.8 TH/MM3 Red Blood Count 4.90 MIL/MM3 Hemoglobin 13.5 GM/DL Hematocrit 40.9 % Mean Corpuscular Volume 83.4 FL Mean Corpuscular Hemoglobin 27.5 PG Mean Corpuscular Hemoglobin Concent 32.9 % Red Cell Distribution Width 17.0 % Platelet Count 168 TH/MM3 Mean Platelet Volume 10.2 FL Neutrophils (%) (Auto) 43.3 % Lymphocytes (%) (Auto) 41.0 % Monocytes (%) (Auto) 9.9 % Eosinophils (%) (Auto) 4.8 % Basophils (%) (Auto) 1.0 % Neutrophils # (Auto) 2.5 TH/MM3 Lymphocytes # (Auto) 2.4 TH/MM3 Monocytes # (Auto) 0.6 TH/MM3 Eosinophils # (Auto) 0.3 TH/MM3 Basophils # (Auto) 0.1 TH/MM3 CBC Comment DIFF FINAL Differential Comment Blood Urea Nitrogen 15 MG/DL Creatinine 1.00 MG/DL Random Glucose 163 MG/DL Total Protein 8.0 GM/DL Albumin 3.4 GM/DL Calcium Level 8.8 MG/DL Alkaline Phosphatase 52 U/L Aspartate Amino Transf (AST/SGOT) 11 U/L Alanine Aminotransferase (ALT/SGPT) 12 U/L Total Bilirubin 0.5 MG/DL Sodium Level 140 MEQ/L Potassium Level 4.1 MEQ/L Chloride Level 107 MEQ/L Carbon Dioxide Level 25.2 MEQ/L Anion Gap 8 MEQ/L Estimat Glomerular Filtration Rate 70 ML/MIN Total Creatine Kinase 173 U/L Creatine Kinase MB 0.9 NG/ML Troponin I LESS THAN 0.02 NG/ML Lipase 488 U/L Urine Color YELLOW Urine Turbidity CLEAR Urine pH 5.0 Urine Specific [place] 1.014 Urine Protein NEG mg/dL Urine Glucose (UA) NEG mg/dL Urine Ketones NEG mg/dL Urine Occult Blood NEG Urine Nitrite NEG Urine Bilirubin NEG Urine Urobilinogen LESS THAN 2.0 MG/DL Urine Leukocyte Esterase SMALL Urine RBC 1 /hpf Urine WBC LESS THAN 1 /hpf Urine Squamous Epithelial Cells 1 /hpf Urine Bacteria RARE /hpf Microscopic Urinalysis Comment CULT NOT INDICATED MDM Medical Decision Making Medical Screen Exam Complete: Yes Emergency Medical Condition: Yes Medical Record Reviewed: Yes Differential Diagnosis Hyperglycemia, DKA, hypertensive urgency, electrolyte abnormality Narrative Course I have reviewed the patient's electronic medical record. Reviewed her admission history and physical from 2 months ago. Patient presents with some vague generalized complaints including weakness and lightheadedness and nausea. She has soft benign nontender abdomen She arrives hypertensive I gave her dose of IV Zofran and clonidine Her EKG shows sinus rhythm with trigeminy but no ST elevation Extended cardiac monitoring reveals sinus rhythm with occasional PVCs IV placed CBC is normal metabolic profile is normal with sugar of 163 LFT's are normal lipase is minimally elevated but that she has no epigastric pain or tenderness Patient's vitals are normal. She has some vague symptoms like generalized weakness and lightheaded but in general looks clinically well and stable for outpatient follow-up Her chronic leg ulcer is not infected looking Cardiac enzymes are normal. She did not have any chest symptoms. No clinical suspicion of ACS Diagnosis Primary Impression: Generalized weakness Additional Impressions: Diabetes mellitus type 2, insulin dependent Lightheadedness Leg ulcer, left Qualified Codes: L97.923 - Non-pressure chronic ulcer of unspecified part of left lower leg with necrosis of muscle Additional Instructions: The patient was advised to follow up with their physician and return if they worsen. Med/Other Pt SpecificInfo: Other Disposition: 01 DISCHARGE HOME Condition: Stable Niles Day MD Aug 19, 2017 07:24
[2017-08-19] MEDS ORDERED: SODIUM CHLORIDE 0.9% FLUSH 10 ML FLUSH IV FLUSH PRN (07:30)
[2017-08-19] MEDS ORDERED: ONDANSETRON HCL 4 MG/2 ML VIAL IV ONE (07:30)
[2017-08-19] MEDS ORDERED: cloNIDine HCL 0.1 MG TAB PO ONE (07:30)
[2017-08-19 07:40] VITALS: O2SAT 98
[2017-08-19 07:50] VITALS: BP 113/62; PULSE 98; RESP 18; O2SAT 95
[2017-08-19 08:25] LABS: AUTOMATED NEUTROPHIL # 2.5 TH/MM3 (1.8-7.7); BASOPHIL # 0.1 TH/MM3 (0-0.2); EOSINOPHIL # 0.3 TH/MM3 (0-0.4); EOSINOPHIL % 4.8 % (0.0-4.0); HEMATOCRIT 40.9 % (35.0-46.0); HEMOGLOBIN 13.5 GM/DL (11.6-15.3); LYMPHOCYTE # 2.4 TH/MM3 (1.0-4.8); MEAN CELL VOLUME 83.4 FL (80.0-100.0); MEAN CORPUSCULAR HEMOGLOBIN 27.5 PG (27.0-34.0); MEAN CORPUSCULAR HGB CONC 32.9 % (32.0-36.0); MEAN PLATELET VOLUME 10.2 FL (7.0-11.0); MONO % 9.9 % (0.0-8.0); MONOCYTE # 0.6 TH/MM3 (0-0.9); NEUT % 43.3 % (16.0-70.0); PLATELET COUNT 168 TH/MM3 (150-450); WHITE BLOOD COUNT 5.8 TH/MM3 (4.0-11.0)
[2017-08-19 08:36] LABS: BACTERIA, URINE RARE /hpf; BILIRUBIN, URINE NEG (NEG); BLOOD, URINE NEG (NEG); GLUCOSE,URINE NEG (NEG); KETONE, URINE NEG (NEG); NITRITE,URINE NEG (NEG); SQUAMOUS EPITHELIAL CELL URINE 1 /hpf (0-5); URINE COLOR YELLOW (YELLW/STRAW); URINE LEUKOCYTE ESTERASE SMALL (NEG)
[2017-08-19 08:45] LABS: ALBUMIN 3.4 GM/DL (3.4-5.0); ALT (GPT) 12 U/L (10-53); AST (GOT) 11 U/L (15-37); BICARBONATE 25.2 MEQ/L (21.0-32.0); BLOOD UREA NITROGEN 15 MG/DL (7-18); CALCIUM 8.8 MG/DL (8.5-10.1); CHLORIDE 107 MEQ/L (98-107); GLOMERULAR FILTRATION RATE 70 ML/MIN (>89); GLUCOSE,RANDOM 163 MG/DL (74-106); SODIUM (NA) 140 MEQ/L (136-145)
[2017-08-19 08:46] LABS: ALKALINE PHOSPHATASE 52 U/L (45-117); TOTAL BILIRUBIN ADULT 0.5 MG/DL (0.2-1.0)
[2017-08-19 09:12] LABS: TROPONIN I LESS THAN 0.02 NG/ML (0.02-0.05)
[2017-08-19 11:15] VITALS: BP 100/64; PULSE 97; RESP 18; O2SAT 99
--- NOTE | 2017-08-19 15:25 | EKG ---
Date Performed: 08/19/2017 Time Performed: 06:54:45 PTAGE: 57 years EKG: Sinus rhythm WITH FREQUENT VENTRICULAR PREMATURE COMPLEXES BORDERLINE LEFT AXIS DEVIATION MODERATE VOLTAGE CRITER IA FOR LVH, CONSIDER NORMAL VARIANT NONSPECIFIC T-WAVE ABNORMALITY ABNORMAL RHYTHM ECG NO PREVIOUS TRACING DOCTOR: Rodrigo Nunes Interpretating Date/Time 08/19/2017 15:23:47
== END 2017-08-19 12:23 | disposition home or self-care (01) ==
LOC: NEPC 06:44
DX: R11.0 Nausea (principal); R53.1 Weakness; E11.622 Type 2 diabetes mellitus with other skin ulcer; R42 Dizziness and giddiness; L97.923 Non-pressure chronic ulcer of unspecified part of left lower leg with necrosis of muscle; R94.31 Abnormal electrocardiogram [ECG] [EKG]; J45.909 Unspecified asthma, uncomplicated; I10 Essential (primary) hypertension; Z79.4 Long term (current) use of insulin; Z79.84 Long term (current) use of oral hypoglycemic drugs
CPT/HCPCS: 80053; 81001; 82550; 82552; 83690; 84484; 85025; 93005; 96374; 99284; J2405

== ENCOUNTER 2017-08-26 10:58 | Emergency (ER) | payer OTHER ==
[~2017-08-26] VITALS: Ht 175.3 cm; Wt 115.5 kg
[~2017-08-26 10:58] MED LIST changes: +FURO1TAB60 PO; +POTA-163 PO
[2017-08-26 11:06] VITALS: BP 136/60; PULSE 81; RESP 18; TEMP 98.6; O2SAT 98
[2017-08-26] MEDS ORDERED: SODIUM CHLORIDE 0.9% FLUSH 10 ML FLUSH IVF PRN (12:00)
[2017-08-26 12:15] LABS: AUTOMATED NEUTROPHIL # 3.6 TH/MM3 (1.8-7.7); BASOPHIL # 0.1 TH/MM3 (0-0.2); EOSINOPHIL # 0.2 TH/MM3 (0-0.4); EOSINOPHIL % 3.5 % (0.0-4.0); HEMATOCRIT 37.9 % (35.0-46.0); HEMOGLOBIN 12.5 GM/DL (11.6-15.3); LYMPH % 33.7 % (9.0-44.0); LYMPHOCYTE # 2.2 TH/MM3 (1.0-4.8); MEAN CELL VOLUME 83.4 FL (80.0-100.0); MEAN CORPUSCULAR HEMOGLOBIN 27.5 PG (27.0-34.0); MEAN CORPUSCULAR HGB CONC 32.9 % (32.0-36.0); MEAN PLATELET VOLUME 11.1 FL (7.0-11.0); MONO % 7.8 % (0.0-8.0); MONOCYTE # 0.5 TH/MM3 (0-0.9); PLATELET COUNT 167 TH/MM3 (150-450); RED BLOOD COUNT 4.54 MIL/MM3 (4.00-5.30); RED CELL DISTRIBUTION WIDTH 16.9 % (11.6-17.2); WHITE BLOOD COUNT 6.7 TH/MM3 (4.0-11.0)
--- NOTE | 2017-08-26 12:21 | RADRPT ---
EXAM DATE/TIME: 08/26/2017 11:56 [facility] COMPARISON: CHEST SINGLE AP, June 13, 2017, 6:48. INDICATIONS : Chest pain and heart palpitations. MEDICAL HISTORY : Congestive heart failure. SURGICAL HISTORY : None. ENCOUNTER: Initial ACUITY: 1 day PAIN SCORE: 3/10 LOCATION: Bilateral chest FINDINGS: A single view of the chest demonstrates the lungs to be symmetrically aerated without evidence of mas s, infiltrate or effusion. The cardiomediastinal contours are unremarkable. Osseous structures are intact. CONCLUSION: No acute disease. Cr Valadez MD on August 26, 2017 at 12:19 Board Certified Radiologist. This report was verified electronically.
--- NOTE | 2017-08-26 12:29 | PD ---
HPI Chief Complaint: Cardiac Complaint Time Seen by Provider: 11:28 Travel History International Travel<30 days: No Contact w/Intl Traveler<30days: No Traveled to known affect area: No History of Present Illness HPI Patient is a 57-year-old female asymptomatic presents the emergency department for evaluation of an abnormal EKG. Patient states she was here a few days ago and was following up with her primary care physician Dr. Nino as scheduled when she was noted to have several PVCs in a quadrennial pattern (3 normal beats followed by a pvc.). She had a recent ER visit last week for generalized weakness and was ultimately discharged, an additional visit in May for dyspnea and pulmonary edema. Patient has no complaints of shortness of breath abdominal pain chest pain palpitations. She states she is here only at the insistence of her primary care physician. She states she has a appointment with her buttoner later today. PFSH Past Medical History Asthma: Yes Blood Disorders: No Heart Rhythm Problems: No Cancer: No Cardiovascular Problems: Yes High Cholesterol: No Chest Pain: No Congestive Heart Failure: No COPD: No Diabetes: Yes Patient Takes Glucophage: Yes Diminished Hearing: No Endocrine: Yes Genitourinary: No Hepatitis: No Hiatal Hernia: No Hypertension: Yes Immune Disorder: No Musculoskeletal: No Neurologic: Yes (NEUROPATHY IN BILATERAL LEGS) Psychiatric: No Reproductive: Yes (CHRONIC YEAST INFECTIONS) Respiratory: Yes Sleep Apnea: No Thyroid Disease: No Tetanus Vaccination: > 5 Years ?: Not Menopausal: Yes Past Surgical History AICD: No Joint Replacement: No Pacemaker: No Thoracic Surgery: Yes (LEFT BREAST BIOPSY) Other Surgery: Yes (CARPAL TUNNEL) Social History Alcohol Use: No Tobacco Use: No Substance Use: No Allergies-Medications (Allergen,Severity, Reaction): Coded Allergies: rosiglitazone (Unverified Allergy, Severe, SHAKES, 08/26/17) Reported Meds & Prescriptions Reported Meds & Active Scripts Active [Albuterol Hfa Inh] 60 PUFF/8 GM Aero 2 Puff INH Q4H PRN Reported Potassium Chloride ER (Potassium Chloride) 20 Meq Tab 20 Meq PO DAILY Lasix (Furosemide) 40 Mg Tab 40 Mg PO DAILY Enalapril (Enalapril Maleate) 20 Mg Tab 20 Mg PO DAILY Lantus Inj (Insulin Glargine) 1,000 Unit/10 Ml Vial 80 Units SQ HS Metformin ER (Metformin HCl) 1,000 Mg John 1,000 Mg PO BID With evening meal Aspirin 81 Mg Chew 81 Mg CHEW DAILY Review of Systems Except as stated in HPI: all other systems reviewed are Neg Physical Exam Narrative GENERAL: Well-developed, morbidly obese female in no obvious distress, quite pleasant SKIN: Focused skin assessment warm/dry. HEAD: Atraumatic. Normocephalic. EYES: Pupils equal and round. No scleral icterus. No injection or drainage. ENT: No nasal bleeding or discharge. Mucous membranes pink and moist. NECK: Trachea midline. No JVD. CARDIOVASCULAR: Regular rate and rhythm. No murmur appreciated. On telemetry patient having frequent PVCs coupled with long stretches of normal sinus rhythm. RESPIRATORY: No accessory muscle use. Clear to auscultation. Breath sounds equal bilaterally. GASTROINTESTINAL: Abdomen soft, non-tender, nondistended. Hepatic and splenic margins not palpable. MUSCULOSKELETAL: No obvious deformities. No clubbing. No cyanosis. No edema. NEUROLOGICAL: Awake and alert. No obvious cranial nerve deficits. Motor grossly within normal limits. Normal speech. PSYCHIATRIC: Appropriate mood and affect; insight and judgment normal. Data Data Last Documented VS Vital Signs Date Time Temp Pulse Resp B/P (MAP) Pulse Ox O2 Delivery O2 Flow Rate FiO2 08/26/17 11:57 99 Room Air 08/26/17 11:06 98.6 81 18 136/60 (85) Orders Orders Electrocardiogram (08/26/17 11:54) B-Type Natriuretic Peptide (08/26/17 11:54) Ckmb (Isoenzyme) Profile (08/26/17 11:54) Complete Blood Count With Diff (08/26/17 11:54) Comprehensive Metabolic Panel (08/26/17 11:54) Magnesium (Mg) (08/26/17 11:54) Prothrombin Time / Inr (Pt) (08/26/17 11:54) Act Partial Throm Time (Ptt) (08/26/17 11:54) Troponin I (08/26/17 11:54) Chest, Single Ap (08/26/17 11:54) Ecg Monitoring (08/26/17 11:54) Iv Access Insert/Monitor (08/26/17 11:54) Oximetry (08/26/17 11:54) Oxygen Administration (08/26/17 11:54) Sodium Chloride 0.9% Flush (Ns Flush) (08/26/17 12:00) CKMB (08/26/17 11:40) CKMB% (08/26/17 11:40) Ed Discharge Order (08/26/17 13:19) Labs Laboratory Tests Test 08/26/17 11:40 08/26/17 13:10 White Blood Count 6.7 TH/MM3 Red Blood Count 4.54 MIL/MM3 Hemoglobin 12.5 GM/DL Hematocrit 37.9 % Mean Corpuscular Volume 83.4 FL Mean Corpuscular Hemoglobin 27.5 PG Mean Corpuscular Hemoglobin Concent 32.9 % Red Cell Distribution Width 16.9 % Platelet Count 167 TH/MM3 Mean Platelet Volume 11.1 FL Neutrophils (%) (Auto) 54.0 % Lymphocytes (%) (Auto) 33.7 % Monocytes (%) (Auto) 7.8 % Eosinophils (%) (Auto) 3.5 % Basophils (%) (Auto) 1.0 % Neutrophils # (Auto) 3.6 TH/MM3 Lymphocytes # (Auto) 2.2 TH/MM3 Monocytes # (Auto) 0.5 TH/MM3 Eosinophils # (Auto) 0.2 TH/MM3 Basophils # (Auto) 0.1 TH/MM3 CBC Comment DIFF FINAL Differential Comment Blood Urea Nitrogen 14 MG/DL Creatinine 1.05 MG/DL Random Glucose 260 MG/DL Total Protein 7.6 GM/DL Albumin 3.3 GM/DL Calcium Level 9.0 MG/DL Magnesium Level 1.7 MG/DL Alkaline Phosphatase 51 U/L Aspartate Amino Transf (AST/SGOT) 25 U/L Alanine Aminotransferase (ALT/SGPT) 17 U/L Total Bilirubin 0.5 MG/DL Sodium Level 139 MEQ/L Potassium Level 4.8 MEQ/L Chloride Level 106 MEQ/L Carbon Dioxide Level 26.0 MEQ/L Anion Gap 7 MEQ/L Estimat Glomerular Filtration Rate 66 ML/MIN Total Creatine Kinase 222 U/L Creatine Kinase MB 1.4 NG/ML Creatine Kinase MB % 0.6 % Troponin I LESS THAN 0.02 NG/ML B-Type Natriuretic Peptide 196 PG/ML Prothrombin Time 11.0 SEC Prothromb Time International Ratio 1.1 RATIO Activated Partial Thromboplast Time 22.2 SEC MDM Medical Decision Making Medical Screen Exam Complete: Yes Emergency Medical Condition: Yes Differential Diagnosis PVCs, ACS unlikely, CA likely, electrolyte abnormality. Narrative Course Patient presents emergency department with trigeminy from Dr. Nino's office, her case was discussed with Dr. Phan her buttoner who has an appointment with her coming up later this afternoon, we discussed possibility for admission versus outpatient at this time we both agree that the patient would be best managed on outpatient basis if she is asymptomatic currently. These recommendations were discussed with the patient, she is agreeable. She wants to get to her appointment this afternoon. Stable for discharge. Diagnosis Primary Impression: Ventricular quadrigeminy Additional Instructions: Follow up with Dr. Ritu Phan as scheduled this afternoon. Disposition: 01 DISCHARGE HOME Condition: Stable Enrrique Shepherd MD Aug 26, 2017 12:29
[2017-08-26 12:33] LABS: ALT (GPT) 17 U/L (10-53)
[2017-08-26 12:39] LABS: ALBUMIN 3.3 GM/DL (3.4-5.0); ALKALINE PHOSPHATASE 51 U/L (45-117); AST (GOT) 25 U/L (15-37); BLOOD UREA NITROGEN 14 MG/DL (7-18); CHLORIDE 106 MEQ/L (98-107); CREATININE 1.05 MG/DL (0.50-1.00); GLOMERULAR FILTRATION RATE 66 ML/MIN (>89); GLUCOSE,RANDOM 260 MG/DL (74-106); MAGNESIUM 1.7 MG/DL (1.5-2.5); SODIUM (NA) 139 MEQ/L (136-145); TOTAL BILIRUBIN ADULT 0.5 MG/DL (0.2-1.0); TOTAL PROTEIN 7.6 GM/DL (6.4-8.2); TROPONIN I LESS THAN 0.02 NG/ML (0.02-0.05)
[2017-08-26 13:36] LABS: INTERNATIONAL NORMALIZED RATIO 1.1 RATIO
--- NOTE | 2017-08-27 11:19 | EKG ---
Date Performed: 08/26/2017 Time Performed: 11:20:00 PTAGE: 57 years EKG: SINUS TACHYCARDIA WITH FREQUENT VENTRICULAR PREMATURE COMPLEXES MODERATE VOLTAGE CRITERIA F OR LVH, CONSIDER NORMAL VARIANT NONSPECIFIC T-WAVE ABNORMALITY ABNORMAL RHYTHM ECG Since the prior tr acing, there has been no significant change PREVIOUS TRACING : 08/19/2017 06.54 DOCTOR: Osman Huffman Interpretating Date/Time 08/27/2017 11:16:05
== END 2017-08-26 14:30 | disposition home or self-care (01) ==
LOC: NEPC 10:58
DX: I49.3 Ventricular premature depolarization (principal); R94.31 Abnormal electrocardiogram [ECG] [EKG]; J45.909 Unspecified asthma, uncomplicated; I10 Essential (primary) hypertension; E11.8 Type 2 diabetes mellitus with unspecified complications
CPT/HCPCS: 71045; 80053; 82550; 82552; 83735; 83880; 84484; 85025; 85610; 85730; 93005; 99285

== ENCOUNTER 2017-11-06 08:24 | Emergency (ER) | payer OTHER ==
[~2017-11-06] VITALS: Ht 175.3 cm; Wt 125.0 kg
[~2017-11-06 08:24] MED LIST changes: -NOVONP2 SQ
[2017-11-06 08:28] VITALS: BP 134/77; PULSE 73; RESP 20; TEMP 98.2; O2SAT 97
[2017-11-06] MEDS ORDERED: MONT10TA4 PO (08:46)
[2017-11-06 09:14] VITALS: BP 134/85; PULSE 90; O2SAT 100
[2017-11-06] MEDS ORDERED: MORPHINE SULFATE 4 MG/ML INJ IV PUSH ONE (09:30)
[2017-11-06] MEDS ORDERED: ONDANSETRON ODT 4 MG TAB PO ONE (09:30)
--- NOTE | 2017-11-06 09:31 | PD ---
HPI Chief Complaint: Syncope/Near-Syncope Time Seen by Provider: 08:57 Travel History International Travel<30 days: No Contact w/Intl Traveler<30days: No Traveled to known affect area: No History of Present Illness HPI The patient was seen and examined in the presence of the nurse. This patient developed right flank pain yesterday. It is worse today. This morning she woke up and got out of bed and bent down to pick up and delivery driver her shoes. While she was bent over she became dizzy and lightheaded. She apparently had a syncopal episode in she woke up on the ground. She denies injury from that incident. She did not have chest pain or palpitations. She did not strike her head or neck. She complains of severe right flank pain. It is worse when she moves. No alleviating factors. Duration 1 day. 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) Endocrine: Yes Genitourinary: No Hepatitis: No Hiatal Hernia: No Hypertension: Yes Immune Disorder: No Musculoskeletal: No Neurologic: Yes (NEUROPATHY IN BILATERAL LEGS) Psychiatric: No Reproductive: Yes (CHRONIC YEAST INFECTIONS) Respiratory: Yes (asthma) Sleep Apnea: No Thyroid Disease: No Tetanus Vaccination: Unknown ?: Not Menopausal: Yes Past Surgical History AICD: No Joint Replacement: No Pacemaker: No Thoracic Surgery: Yes (LEFT BREAST BIOPSY) Other Surgery: Yes (CARPAL TUNNEL, L Breast Biopsy) Social History Alcohol Use: No Tobacco Use: No Substance Use: No Allergies-Medications (Allergen,Severity, Reaction): Coded Allergies: rosiglitazone (Verified Allergy, Severe, SHAKES, 11/06/17) Reported Meds & Prescriptions Reported Meds & Active Scripts Active Tramadol (Tramadol HCl) 50 Mg Tab 50 Mg PO Q6H PRN [Albuterol Hfa Inh] 60 PUFF/8 GM Aero 2 Puff INH Q4H PRN Reported Montelukast (Montelukast Sodium) 10 Mg Tab 10 Mg PO HS Potassium Chloride ER (Potassium Chloride) 20 Meq Tab 20 Meq PO DAILY Lasix (Furosemide) 40 Mg Tab 40 Mg PO DAILY Enalapril (Enalapril Maleate) 20 Mg Tab 20 Mg PO DAILY Lantus Inj (Insulin Glargine) 1,000 Unit/10 Ml Vial 80 Units SQ HS Metformin ER (Metformin HCl) 1,000 Mg John 1,000 Mg PO BID With evening meal Aspirin 81 Mg Chew 81 Mg CHEW DAILY Review of Systems General / Constitutional: No: Fever Eyes: No: Visual changes HENT: Positive: Lightheadedness Cardiovascular: Positive: Syncope, No: Chest Pain or Discomfort Respiratory: No: Shortness of Breath Gastrointestinal: No: Abdominal Pain Genitourinary: Positive: Flank Pain, No: Dysuria Musculoskeletal: Positive: Pain Skin: No Rash Neurologic: Positive: Dizziness, Syncope, No: Weakness Psychiatric: No: Depression Endocrine: No: Polydipsia Hematologic/Lymphatic: No: Easy Bruising Physical Exam Narrative GENERAL: Well-nourished, well-developed patient with right flank pain SKIN: Focused skin assessment reveals no rash and nodules. Skin is Warm and dry. She has a large deep ulcer on her left lateral lower leg. It has been there for at least one year per patient. No sign of infection HEAD: Atraumatic. Normocephalic. EYES: Pupils equal and round. No scleral icterus. No injection or drainage. ENT: No nasal bleeding or discharge. Mucous membranes pink and moist. NECK: Trachea midline. No JVD. CARDIOVASCULAR: Regular rate and rhythm. No murmur appreciated. RESPIRATORY: No accessory muscle use. Clear to auscultation. Breath sounds equal bilaterally. GASTROINTESTINAL: Abdomen soft, non-tender, nondistended. Hepatic and splenic margins not palpable. MUSCULOSKELETAL: No obvious deformities. No clubbing. No cyanosis. No edema. Has right-sided CVA tenderness NEUROLOGICAL: Awake and alert. No obvious cranial nerve deficits. Motor grossly within normal limits. Normal speech. PSYCHIATRIC: Appropriate mood and affect; insight and judgment normal. Data Data Last Documented VS Vital Signs Date Time Temp Pulse Resp B/P (MAP) Pulse Ox O2 Delivery O2 Flow Rate FiO2 11/06/17 11:15 94 108/72 (84) 98 11/06/17 08:28 98.2 20 Orders Orders Morphine Inj (Morphine Inj) (11/06/17 09:30) Ondansetron Odt (Zofran Odt) (11/06/17 09:30) Iv Access Insert/Monitor (11/06/17 09:22) Complete Blood Count With Diff (11/06/17 09:22) Basic Metabolic Panel (Bmp) (11/06/17 09:22) Ct Abd/Pel W/O Iv Contrast (11/06/17 ) [employer] / Telemetry PENNIE.Q8H (11/06/17 09:22) Electrocardiogram (11/06/17 ) Urinalysis - C+S If Indicated (11/06/17 09:22) Labs Laboratory Tests Test 11/06/17 09:40 11/06/17 11:35 White Blood Count 8.2 TH/MM3 Red Blood Count 4.50 MIL/MM3 Hemoglobin 12.7 GM/DL Hematocrit 38.7 % Mean Corpuscular Volume 86.0 FL Mean Corpuscular Hemoglobin 28.3 PG Mean Corpuscular Hemoglobin Concent 32.9 % Red Cell Distribution Width 16.7 % Platelet Count 140 TH/MM3 Mean Platelet Volume 10.9 FL Neutrophils (%) (Auto) 65.0 % Lymphocytes (%) (Auto) 24.4 % Monocytes (%) (Auto) 6.8 % Eosinophils (%) (Auto) 2.9 % Basophils (%) (Auto) 0.9 % Neutrophils # (Auto) 5.4 TH/MM3 Lymphocytes # (Auto) 2.0 TH/MM3 Monocytes # (Auto) 0.6 TH/MM3 Eosinophils # (Auto) 0.2 TH/MM3 Basophils # (Auto) 0.1 TH/MM3 CBC Comment DIFF FINAL Differential Comment Blood Urea Nitrogen 14 MG/DL Creatinine 1.04 MG/DL Random Glucose 240 MG/DL Calcium Level 8.6 MG/DL Sodium Level 143 MEQ/L Potassium Level 4.5 MEQ/L Chloride Level 106 MEQ/L Carbon Dioxide Level 28.4 MEQ/L Anion Gap 9 MEQ/L Estimat Glomerular Filtration Rate 67 ML/MIN Urine Color YELLOW Urine Turbidity CLEAR Urine pH 5.0 Urine Specific [place] 1.012 Urine Protein TRACE mg/dL Urine Glucose (UA) 1000 mg/dL Urine Ketones NEG mg/dL Urine Occult Blood NEG Urine Nitrite NEG Urine Bilirubin NEG Urine Urobilinogen LESS THAN 2.0 MG/DL Urine Leukocyte Esterase NEG Urine WBC 3 /hpf Urine Squamous Epithelial Cells 2 /hpf Urine Hyaline Casts 2 /lpf Urine Mucus FEW /lpf Microscopic Urinalysis Comment CULT NOT INDICATED MDM Medical Decision Making Medical Screen Exam Complete: Yes Emergency Medical Condition: Yes Medical Record Reviewed: Yes Differential Diagnosis Cardiac arrhythmia, vasovagal episode, kidney stone, pyelonephritis Narrative Course I have reviewed the patient's electronic medical record. I saw this patient in July of this year for a variety of different complaints and she had a negative workup IV placed I gave her injection morphine and Zofran for symptom relief Ordered extensive workup She has 1 day of flank pain which is severe as well as syncopal episode this morning CT of abdomen pelvis is negative Urine is clean Labs are reviewed and normal other than some hyperglycemia of 240 Etiology of her pain and syncopal episode unclear I have observed her for 5 hours without any change in symptoms Etiology is unclear but I think she is stable for outpatient follow-up I wrote her a few tramadol Recommend primary care follow-up Diagnosis Primary Impression: Acute right flank pain Additional Impression: Syncopal episodes Qualified Codes: R55 - Syncope and collapse Additional Instructions: The patient was advised to follow up with their physician and return if they worsen. The patient was warned about potential sedation for the medications they will receive on prescription. Med/Other Pt SpecificInfo: Prescription(s) given Scripts Tramadol (Tramadol) 50 Mg Tab 50 MG PO Q6H Y for PAIN, #10 TAB 0 Refills Prov: Niles Day MD 11/06/17 Disposition: 01 DISCHARGE HOME Condition: Stable Niles Day MD November 06, 2017 09:31
[2017-11-06 09:59] LABS: AUTOMATED NEUTROPHIL # 5.4 TH/MM3 (1.8-7.7); BASOPHIL # 0.1 TH/MM3 (0-0.2); BASOPHIL % 0.9 % (0.0-2.0); EOSINOPHIL # 0.2 TH/MM3 (0-0.4); EOSINOPHIL % 2.9 % (0.0-4.0); HEMATOCRIT 38.7 % (35.0-46.0); HEMOGLOBIN 12.7 GM/DL (11.6-15.3); LYMPH % 24.4 % (9.0-44.0); MEAN CORPUSCULAR HEMOGLOBIN 28.3 PG (27.0-34.0); MEAN CORPUSCULAR HGB CONC 32.9 % (32.0-36.0); MEAN PLATELET VOLUME 10.9 FL (7.0-11.0); MONO % 6.8 % (0.0-8.0); MONOCYTE # 0.6 TH/MM3 (0-0.9); PLATELET COUNT 140 TH/MM3 (150-450); RED CELL DISTRIBUTION WIDTH 16.7 % (11.6-17.2); WHITE BLOOD COUNT 8.2 TH/MM3 (4.0-11.0)
--- NOTE | 2017-11-06 10:09 | RADRPT ---
EXAM DATE/TIME: 11/06/2017 09:50 [facility] COMPARISON: No previous studies available for comparison. INDICATIONS : Right flank pain and nausea. Syncope. ORAL CONTRAST: No oral contrast ingested. RADIATION DOSE: 31.66 CTDIvol (mGy) ; Patient body habitus MEDICAL HISTORY : Cardiovascular disease. Hypertension. Diabetes mellitus type 2. SURGICAL HISTORY : None. ENCOUNTER: Initial ACUITY: 1 day PAIN SCALE: 0/10 LOCATION: abdomen/pelvis TECHNIQUE: Volumetric scanning of the abdomen and pelvis was performed. Using automated exposure control and ad justment of the mA and/or kV according to patient size, radiation dose was kept as low as reasonably achievable to obtain optimal diagnostic quality images. DICOM format image data is available electro nically for review and comparison. FINDINGS: Lung bases are clear. No pleural or pericardial effusion. No acute findings in the liver, spleen, adrenals, kidneys or pancreas. No calcified gallstones or george iary ductal dilatation. There is mild constipation. No free air or free fluid. No adenopathy. No acute bony abnormality. CONCLUSION: 1. No acute finding abdomen and pelvic CT. Specifically no renal calculi or evidence for obstructive uropathy. Grant Montoya MD on November 06, 2017 at 10:02 Board Certified Radiologist. This report was verified electronically.
[2017-11-06 10:23] LABS: BICARBONATE 28.4 MEQ/L (21.0-32.0); CALCIUM 8.6 MG/DL (8.5-10.1); CREATININE 1.04 MG/DL (0.50-1.00)
[2017-11-06 11:15] VITALS: BP 108/72; PULSE 94; O2SAT 98
[2017-11-06 12:04] LABS: BILIRUBIN, URINE NEG (NEG); BLOOD, URINE NEG (NEG); GLUCOSE,URINE 1000 mg/dL (NEG); HYALINE CAST, URINE 2 /lpf (RARE); KETONE, URINE NEG (NEG); MUCUS URINE FEW /lpf (OCC); NITRITE,URINE NEG (NEG); SQUAMOUS EPITHELIAL CELL URINE 2 /hpf (0-5); URINE COLOR YELLOW (YELLW/STRAW); URINE LEUKOCYTE ESTERASE NEG (NEG)
[2017-11-06] MEDS ORDERED: TRAM50TA PO (14:00)
[2017-11-06 14:41] VITALS: BP 110/74; PULSE 80; RESP 16; O2SAT 99
--- NOTE | 2017-11-07 08:20 | EKG ---
Date Performed: 11/06/2017 Time Performed: 08:35:51 PTAGE: 57 years EKG: Sinus rhythm LOW QRS VOLTAGE IN PRECORDIAL LEADS NONSPECIFIC T-WAVE ABNORMALITY BORDERLINE ECG PREVIOUS TRACING : 08/26/2017 11.20 DOCTOR: Jonathan Downing Interpretating Date/Time 11/07/2017 08:18:29
== END 2017-11-06 14:42 | disposition home or self-care (01) ==
LOC: NEPC 08:24
DX: R10.9 Unspecified abdominal pain (principal); R55 Syncope and collapse; E11.9 Type 2 diabetes mellitus without complications; Z79.4 Long term (current) use of insulin
CPT/HCPCS: 74176; 80048; 81001; 85025; 93005; 96374; 99285; J2270